=== PATIENT | female | born 1990 | race Asian ===

== ENCOUNTER → 2021-12-17 18:20 | Outpatient (CLI) | payer OTHER, SELFPAY ==
--- NOTE | 2021-12-17 18:22 | DI.US.S_ITS ---
PROCEDURE: US OB <= 14 WEEKS FETUS INDICATIONS: Dating and viability OUTSIDE/PRIOR DATING DATA: Last menstrual period (LMP): September 14, 2021. LMP-based estimated date of delivery (PAOLA): June 21, 2022. First dating scan (date and location): December 17, 2021. Estimated date of delivery (PAOLA) from first dating scan: June 28, 2022. TECHNIQUE: Real-time scanning was performed of the fetus and maternal pelvic organs, with image documentation. COMPARISON: None. FINDINGS: Embryo: There is a single live intrauterine gestation with a crown-rump length of 5.88 cm for a gestational age of 12 weeks, 3 days. There are 2 small subchorionic foci of hemorrhage, 1 of which measures 1.1 x 1.6 x 2.4 cm and 1 which measures 3.4 x 0.9 x 3.1 cm. Heart rate: 163 Maternal organs: Ovaries have a normal appearance. There is a left corpus luteal cyst.. IMPRESSION: 1. Single live intrauterine gestation with a gestational age of 12 weeks, 3 days by crown-rump length. 2. 2 foci of subchorionic hemorrhage as above. We strive to produce accurate, complete, and clear reports of imaging services. To assist us in improving patient care, this report was composed using standard report templates and voice recognition software. Therefore, it may contain abnormal punctuation, insertions and/or omissions. Occasional wrong-word or sound-alike substitutions may occur. Though we review the report and make efforts to correct it, we do recommend that the report be read carefully in proper context to recognize any text inaccuracies. Dictated by: Tonie Romero M.D. on 12/18/2021 at 8:53 Approved by: Tonie Romero M.D. on 12/18/2021 at 9:07
== END ==
PROVIDERS: Referring Provider Obstetrics & Gynecology; Visit Provider Obstetrics & Gynecology
DX: O20.9 Hemorrhage in early pregnancy, unspecified (principal); O34.81 Maternal care for other abnormalities of pelvic organs, first trimester; N83.12 Corpus luteum cyst of left ovary; Z3A.12 12 weeks gestation of pregnancy
CPT/HCPCS: 76801

== ENCOUNTER → 2021-12-27 11:23 | Outpatient (CLI) | payer OTHER, SELFPAY ==
[2021-12-27 15:39] LABS: Appearance Urine UA SL CLOUDY; Bilirubin Urine UA NEGATIVE (NEGATIVE); Color Urine UA YELLOW; Glucose Urine UA NEGATIVE (Negative); Ketones Urine UA NEGATIVE (NEGATIVE); Leukocyte Esterase Urine UA TRACE (NEGATIVE); Nitrite Urine UA NEGATIVE (Negative); Occult Blood Urine UA TRACE-INTACT (Negative); Protein Urine UA NEGATIVE (Negative); Urobilinogen Urine UA 0.2 E.U./dL (0.2)
[2021-12-27 15:40] LABS: pH Urine UA 6.5 (4.5-8.0)
[2021-12-27 15:58] LABS: Amorphous Sediment Urine 1+; Bacteria Urine Few (2-10); Mucus Urine 1+ (Negative); RBC Urine 0-1/HPF (0-5/HPF); Squamous Epithelial Cell Urine 1-5 /HPF (0-5/HPF); Transitional Epi Cells Urine 5-10/HPF (0-5/HPF); WBC Urine 0-1/HPF (0-5/HPF)
== END ==
PROVIDERS: Visit Provider Obstetrics & Gynecology
DX: Z34.00 Encounter for supervision of normal first pregnancy, unspecified trimester (principal)
CPT/HCPCS: 81003; 81015; 87086

== ENCOUNTER → 2021-12-27 12:08 | Outpatient (CLI) | payer OTHER, SELFPAY ==
[2021-12-27 13:48] LABS: Add Manual Diff / Slide Review NO; Basophils Absolute Auto 0 /uL (0-100); Basophils Percent Auto 0.3 % (0-2); Eosinophils Absolute Auto 300 /uL (0-450); Eosinophils Percent Auto 2.4 % (2-4); Hematocrit 40.2 % (36-46); Hemoglobin 13.4 g/dL (12.0-16.0); Lymphocytes Absolute Auto 1500 /uL (1100-4500); Lymphocytes Percent Auto 14.1 % (25-40); Mean Corpuscular HGB Conc 33.4 % (30-36); Mean Corpuscular Hemoglobin 29.8 PG (26-34); Mean Corpuscular Volume 89.2 fL (80-100); Monocytes Absolute Auto 800 /uL (0-900); Monocytes Percent Auto 7.3 % (3-14); Neutrophils Absolute Auto 7900 /uL (1500-7000); Neutrophils Percent Auto 75.9 % (50-75); Platelet Count 236 X10^3/uL (150-400); Red Blood Cell Count 4.51 X10^6/uL (4.0-5.2); Red Cell Distribution Width 14.1 % (11.6-14.8); White Blood Cell Count 10.5 X10^3/uL (4.5-11.0)
[2021-12-28 07:37] LABS: RPR Screen Non Reactive (Non Reactive); Varicella IgG Antibody 453 index (Immune >165)
[2021-12-28 15:49] LABS: Hepatitis B Surface Antigen NEGATIVE s/c (NEGATIVE)
[2021-12-28 16:19] LABS: HIV 1 & 2 Ab/Ag 4th Gen Combo NEGATIVE (NEGATIVE); Hep C Virus Ab w/Reflex Quant NEGATIVE s/c (NEGATIVE)
== END ==
PROVIDERS: Referring Provider Obstetrics & Gynecology; Visit Provider Obstetrics & Gynecology
DX: Z3A.14 14 weeks gestation of pregnancy; Z34.02 Encounter for supervision of normal first pregnancy, second trimester
CPT/HCPCS: 36415; 80055; 81003; 81015; 86787; 86803; 86850; 86900; 86901; 87086; 87389

== ENCOUNTER → 2022-01-21 13:46 | Outpatient (CLI) | payer OTHER, SELFPAY ==
[2022-01-24 20:38] LABS: AFP Value 25.6 ng/mL (.); Gest Age on Col Date 18.4 weeks (.); Insulin Dep Diabetes No (.); OSBR Risk 1IN 10000 (.); Results Report (.); Test Results *Screen Negative* (.)
== END ==
PROVIDERS: Referring Provider Physician Assistant Medical; Visit Provider Physician Assistant Medical
DX: Z34.02 Encounter for supervision of normal first pregnancy, second trimester (principal); Z3A.18 18 weeks gestation of pregnancy
CPT/HCPCS: 36415; 82105

== ENCOUNTER → 2022-02-11 09:36 | Outpatient (CLI) | payer OTHER, SELFPAY ==
--- NOTE | 2022-02-11 09:37 | DI.US.S_ITS ---
PROCEDURE: US OB >= 14 WEEKS FETUS INDICATIONS: ANATOMY OUTSIDE/PRIOR DATING DATA: Last menstrual period (LMP): 09/14/21. LMP-based estimated date of delivery (PAOLA): 06/21/22. First dating scan (date and location): 12/17/21. Estimated date of delivery (PAOLA) from first dating scan: 06/28/22. The calculations are made using the first-trimester ultrasound PAOLA of 06/28/22. TECHNIQUE: Real-time scanning was performed of the fetus, with image documentation and biometric measurements. Endovaginal scanning: Not performed COMPARISON: None. FINDINGS: General: A single living intrauterine gestation is present. Presentation: Transverse, head to maternal left. Placenta: Placental position is anterior , without previa. Amniotic fluid index: 13.2 cm, normal range is 5-24 cm. Single deepest vertical pocket is 4.1 cm. heart rate: 119 beats per minute. Maternal cervical canal: Closed and 3.2 cm long. Normal lower limit is 2.5 cm. biometrics: Biparietal diameter: 4.9 cm, 20 weeks, six days Head circumference: 18.4 cm, 20 weeks, five days Abdominal circumference: 15.7 cm, 20 weeks, six days Femur length: 3.2 cm, 20 weeks, 0 days Clinically estimated gestational age: 20 weeks, three days Composite gestational age from present scan: 20 weeks, four days Estimated weight and percentile: 359 g, 50th percentile Anatomic survey: Neuro: Ventricles are non-dilated at less than 10 mm. Cisterna magna is normal at 3-11 mm. Cerebellum is normal in size and morphology. Nuchal skin fold: Normal at less than 6 mm between 14-21 weeks gestational age. Face: facial features were not well seen due to lie. Spine: No evidence for spina bifida. Heart: 4-chambered heart is present, with normal ventricular outflow tracts. Diaphragm: Diaphragm is intact. Stomach: Left-sided stomach is present. Kidneys: No hydronephrosis. Normal is less than 5 mm in 2nd trimester, less than 7 mm in 3rd trimester. Cord: 3-vessel cord has orthotopic insertion. Bladder: Normal in size. Extremities: All 4 extremities identified. IMPRESSION: 1. Single living intrauterine with appropriate and symmetric growth compared to the clinical gestational age. 2. Estimated weight at the 50th percentile. 3. facial features were not well seen due to lie. anatomy is otherwise normal. Follow-up is recommended. We strive to produce accurate, complete, and clear reports of imaging services. To assist us in improving patient care, this report was composed using standard report templates and voice recognition software. Therefore, it may contain abnormal punctuation, insertions and/or omissions. Occasional wrong-word or sound-alike substitutions may occur. Though we review the report and make efforts to correct it, we do recommend that the report be read carefully in proper context to recognize any text inaccuracies. Dictated by: Mary Gao M.D. on 02/11/2022 at 12:13 Approved by: Mary Gao M.D. on 02/11/2022 at 12:46
== END ==
PROVIDERS: Referring Provider Obstetrics & Gynecology; Visit Provider Obstetrics & Gynecology
DX: Z34.02 Encounter for supervision of normal first pregnancy, second trimester (principal); Z3A.20 20 weeks gestation of pregnancy
CPT/HCPCS: 76811

== ENCOUNTER → 2022-03-04 15:59 | Outpatient (CLI) | payer OTHER, SELFPAY ==
--- NOTE | 2022-03-04 16:00 | DI.US.S_ITS ---
PROCEDURE: US OB FOLLOW UP INDICATIONS: FU on babys face OUTSIDE/PRIOR DATING DATA: Last menstrual period (LMP): 09/14/2021 LMP-based estimated date of delivery (PAOLA): 06/21/2022. First dating scan (date and location): 12/17/2021. Estimated date of delivery (PAOLA) from first dating scan: A 06/28/2022. TECHNIQUE: Real-time scanning was performed of the fetus, with image documentation and biometric measurements. COMPARISON: [facility], OB >= 14 WEEKS FETUS, 02/11/2022, 9:41. FINDINGS: General: A single living intrauterine gestation is present. Presentation: Vertex. Placenta: Placental position is anterior , without previa. Amniotic fluid index: 20.1 cm, normal range is 5-24 cm. Single deepest vertical pocket is 6.5 cm. heart rate: 130 beats per minute. Maternal cervical canal: 5.2 cm long. Normal lower limit is 2.5 cm. Normal appearance of the face, nose lips and facial profile. IMPRESSION: 1. Single living IUP redemonstrated and today's exam demonstrating normal appearance of the face. We strive to produce accurate, complete, and clear reports of imaging services. To assist us in improving patient care, this report was composed using standard report templates and voice recognition software. Therefore, it may contain abnormal punctuation, insertions and/or omissions. Occasional wrong-word or sound-alike substitutions may occur. Though we review the report and make efforts to correct it, we do recommend that the report be read carefully in proper context to recognize any text inaccuracies. Dictated by: Delon Antonio Feng Interpreted: Landen Solis MD on 03/04/2022 at 16:38 Transcribed by: JORGE LUIS on 03/04/2022 at 16:40 Approved by: Landen Solis M.D. on 03/04/2022 at 16:52
== END ==
PROVIDERS: Referring Provider Obstetrics & Gynecology; Visit Provider Obstetrics & Gynecology
DX: Z3A.21 21 weeks gestation of pregnancy; Z36.2 Encounter for other antenatal screening follow-up
CPT/HCPCS: 76816

== ENCOUNTER → 2022-03-18 12:05 | Outpatient (CLI) | payer OTHER, SELFPAY ==
[2022-03-18 13:58] LABS: Hematocrit 36.7 % (36-46); Hemoglobin 12.6 g/dL (12.0-16.0)
[2022-03-18 16:50] LABS: GTT (PREG) 1 Hour PP 50gm Dose 103 mg/dL (76-139)
== END ==
PROVIDERS: Referring Provider Obstetrics & Gynecology; Visit Provider Obstetrics & Gynecology
DX: Z34.02 Encounter for supervision of normal first pregnancy, second trimester (principal); Z3A.26 26 weeks gestation of pregnancy
CPT/HCPCS: 36415; 82950; 85014; 85018

== ENCOUNTER → 2022-06-03 09:57 | Outpatient (CLI) | payer OTHER, SELFPAY ==
[2022-06-04 07:45] LABS: Strep Grp B PCR NEG for Grp B Strep
== END ==
PROVIDERS: Visit Provider Physician Assistant Medical
DX: Z34.03 Encounter for supervision of normal first pregnancy, third trimester (principal); Z3A.37 37 weeks gestation of pregnancy
CPT/HCPCS: 87653

== ENCOUNTER → 2022-06-17 10:35 | Outpatient (CLI) | payer OTHER, SELFPAY ==
[2022-06-17 15:04] LABS: Protein (Total) Urine Random 13 mg/dL (0-12)
[2022-06-17 15:53] LABS: Creatinine Urine Random 475.9 mg/dL; Protein Creatinine Ratio Urine 0.02 GRAM/24H
== END ==
PROVIDERS: Visit Provider Obstetrics & Gynecology
DX: R80.9 Proteinuria, unspecified (principal); Z34.03 Encounter for supervision of normal first pregnancy, third trimester
CPT/HCPCS: 82570; 84156

== ENCOUNTER → 2022-06-25 14:35 | Outpatient (CLI) | payer OTHER, SELFPAY | PROVIDERS: Visit Provider Obstetrics & Gynecology | DX: Z34.83 Encounter for supervision of other normal pregnancy, third trimester (principal) | CPT/HCPCS: 87086 ==

== ENCOUNTER 2022-06-25 14:51 | Outpatient (CLI) | payer OTHER, SELFPAY ==
--- NOTE | 2022-06-25 16:03 | PM.OBTRLD ---
Visit Information Visit Information Date of evaluation: 06/25/22 Primary OB Provider: Bubba Umana Reason for Evaluation: Yes non-stress test Comments/Additional reasons for admission: 31 yo PAOLA 06/21/2022 presenting for NST due to 40+4 weeks EGA PFSH Medical History (Updated 06/25/22 @ 14:53 by Bubba Umana MD) Anxiety Depression Tuberculosis Surgical History (Updated 12/17/21 @ 15:45 by Pam Choi, RN) [place] teeth extracted Family History (Updated 12/17/21 @ 15:47 by Pam Choi, RN) Family/Other Hypertension Family/Other Brain cancer Grandmother Ovarian cancer Diabetes mellitus Social History marital status: number of children: 0 household members: spouse lives independently: Yes housing: apartment pets and animals: Yes (1 cat, managing litter box.) education level: college occupational status: employed current occupational exposures/hazards: No special sadiq needs: No travel history: recent (domestic only) seatbelt use: always helmet use: Yes water heater temp set < 120 deg: No working smoke detector in home: Yes fire extinguisher in home: Yes carbon monox detector in home: Yes firearms in home: No do you feel safe at home: Yes Smoking Status: Former smoker (Quit age 23) second hand exposure: No alcohol intake: former (occasional 1-2 drinks when not ) substance use type: does not use during the past year weight has: remained stable well-balanced diet: daily or most days daily servings fruits/ve or more times/day caffeine: Yes (Aware of 200mg limit) Type(s) of exercise: walking, regular exercise and weight lifting Evaluation Evaluation Baseline heart rate: 135 Variability: Moderate (11-25) monitor accelerations: Present Monitor Decelerations: Absent Uterine Contraction Intensity: Mild Category of Tracing: Reactive Status: Category l Comments: SANDRO = 8.02 cm Diagnosis, Plan/Disposition Plan/Disposition Plan: Admit for cervical ripening on the evening of 06/26/2022 and induction 06/27/2022. Labor precautions reviewed. OB Disposition: home
== END 2022-06-25 15:50 | disposition home or self-care (01) ==
LOC: LABOR 15:55 → OB 06-27 15:54
PROVIDERS: Referring Provider Obstetrics & Gynecology; Visit Provider Obstetrics & Gynecology
DX: O48.0 Post-term pregnancy (principal); Z3A.40 40 weeks gestation of pregnancy; Z34.83 Encounter for supervision of other normal pregnancy, third trimester
CPT/HCPCS: 59025; 76815; 87086; G0378; G0379

== ENCOUNTER 2022-06-26 18:04 | Inpatient (IN) | payer OTHER, SELFPAY ==
[2022-06-26 18:59] LABS: Add Manual Diff / Slide Review NO; Basophils Absolute Auto 0 /uL (0-100); Basophils Percent Auto 0.3 % (0-2); Eosinophils Absolute Auto 200 /uL (0-450); Hematocrit 37.6 % (36-46); Hemoglobin 12.8 g/dL (12.0-16.0); Lymphocytes Absolute Auto 1300 /uL (1100-4500); Lymphocytes Percent Auto 16.1 % (25-40); Mean Corpuscular HGB Conc 34.1 % (30-36); Mean Corpuscular Hemoglobin 30.7 PG (26-34); Mean Corpuscular Volume 89.9 fL (80-100); Monocytes Absolute Auto 700 /uL (0-900); Monocytes Percent Auto 8.8 % (3-14); Neutrophils Absolute Auto 5800 /uL (1500-7000); Neutrophils Percent Auto 71.8 % (50-75); Platelet Count 199 X10^3/uL (150-400); Red Blood Cell Count 4.18 X10^6/uL (4.0-5.2); Red Cell Distribution Width 14.3 % (11.6-14.8); White Blood Cell Count 8.1 X10^3/uL (4.5-11.0)
--- NOTE | 2022-06-26 19:19 | P.HPOB_ITS ---
OB HPI Date/Time Date of admission: 06/26/22 Date Patient Seen: 06/26/22 Time Patient Seen: 19:20 History of Present Condition Chief complaint: Observation : 1 Para: 0 Estimated Date of Delivery: 06/21/22 Estimated Gestational Age (weeks): 40+5 Narrative: Ondina Dalton is a 31 year old primigravida at 40+ 5 weeks EGA admitted for elective induction/post-dates. course has been unremarkable, her da ting is solid, and her milestones appropriate. GBS is negative. Indications Indication for induction OB: post dates History of Present care: good care Dating criteria: LMP confirmed by 1st trimester US Ultrasounds: normal 1st trimester US and normal mid trimester US Obstetrical complications: none Medical complications: none Preadmission Labs Blood type: O (+) positive -: Antibody screen: negative, GBS status: negative, HBsAG: negative, HIV: negative and RPR/VDLR: negative -: Chlamydia screen: not detected and Gonorrhea screen: not detected -: Rubella: immune and Varicella: immune HCT: 36.7 HCAB: negative PAP: Normal Quad screen: Normal (AFP negative) Cell-free DNA: Low risk male 1 hr GTT: 103 Prior (ies) History: G1 Evaluation Evaluation Baseline heart rate: 130 Variability: Moderate (11-25) monitor accelerations: Present Monitor Decelerations: Absent Contraction Frequency (minutes): 5 Uterine Contraction Intensity: Mild Category of Tracing: Reactive Status: Category l Dilation (cm): 1 Effacement (%): 90 Dilation: 1-2 cm Effacement: >/=80% station: -1 Position of cervix: mid Consistency: medium Max score: 8 PFSH Medical History (Updated 06/25/22 @ 14:53 by Bubba Umana MD) Anxiety Depression Tuberculosis Surgical History (Updated 12/17/21 @ 15:45 by Pam Choi, KATJA) [place] teeth extracted Family History (Updated 12/17/21 @ 15:47 by Pam Choi, KATJA) Family/Other Hypertension Family/Other Brain cancer Grandmother Ovarian cancer Diabetes mellitus Social History marital status: number of children: 0 household members: spouse lives independently: Yes housing: apartment pets and animals: Yes (1 cat, managing litter box.) education level: college occupational status: employed current occupational exposures/hazards: No special sadiq needs: No travel history: recent (domestic only) seatbelt use: always helmet use: Yes water heater temp set < 120 deg: No working smoke detector in home: Yes fire extinguisher in home: Yes carbon monox detector in home: Yes firearms in home: No do you feel safe at home: Yes Smoking Status: Former smoker (Quit age 23) second hand exposure: No alcohol intake: former (occasional 1-2 drinks when not ) substance use type: does not use during the past year weight has: remained stable well-balanced diet: daily or most days daily servings fruits/ve or more times/day caffeine: Yes (Aware of 200mg limit) Type(s) of exercise: walking, regular exercise and weight lifting Meds Home Medications and Allergies Home Medications Medication Instructions Recorded Confirmed Type ascorbic acid (vitamin C) 1,000 mg 1 g PO DAILY 12/17/21 06/25/22 History tablet prenat.vits,román,iqj-jigq-xsznh 1 tab PO DAILY 12/17/21 06/25/22 History ondansetron 4 mg disintegrating 4 mg PO Q8H #20 tabs 12/27/21 06/25/22 Rx tablet double electric breast pump 1 ea topical .prn #1 ea 06/04/22 06/25/22 Rx Allergies Allergy/AdvReac Type Severity Reaction Status Date / Time shellfish derived Allergy Intermediate ITCHING Verified 06/25/22 14:16 OB Exam Vital signs Blood Pressure: 139/86 Pulse Rate: 78 Temperature: 98.1 F HENMT Head: normal to inspection, normocephalic and atraumatic Eyes General: appearance normal, both eyes and all related structures Resp Effort & Inspection: normal respiratory effort and able to speak in complete sentences Auscultation: clear to auscultation bilaterally Cardio Rate: regular rate Rhythm: regular rhythm Heart Sounds: S1 normal, S2 normal and no murmurs Extremities Lower extremity: Yes normal to inspection GI Inspection: normal to inspection Palpation: Yes soft and Yes no hepatosplenomegaly Uterus Location (Fundal Height): 38 Presentation: vertex Estimated Weight (lbs): 8 Objective Labs 06/26/22 18:13 Assessment and Plan Assessment and Plan Assessment and Plan narrative: ASSESSMENT 1. Intrauterine , 40+5 wks EGA 2. GBS negative status PLAN 1. Admit for ripening/induction 2. See admission orders Time Spent with Patient Total time spent with greater than 50% in coordination of care (as documented) at patient's floor/unit and/or counseling patient:: 15-24 minutes
[2022-06-26 19:31] VITALS: BP 139/86
[2022-06-26] MEDS: miSOPROStoL 100 MCG TABLET 50 MCG PO (19:41)
[2022-06-26 19:45] VITALS: BP 139/86; PULSE 78; TEMP 36.7
[2022-06-26] MEDS: ZOLPIDEM 5 MG TABLET PO (23:31)
[2022-06-27] MEDS: miSOPROStoL 100 MCG TABLET 50 MCG PO (01:48)
--- NOTE | 2022-06-27 07:39 | P.HPOB_ITS ---
OB HPI Date/Time Date of admission: 06/26/22 Date Patient Seen: 06/27/22 Time Patient Seen: 07:40 History of Present Condition Chief complaint: Observation : 1 Para: 0 Estimated Date of Delivery: 06/21/22 Estimated Gestational Age (weeks): 40+6 Narrative: Ondina Dalton is a 31 year old PAOLA 06/21/2022 admitted for ripening and induction now at 40+6 weeks EGA. course has been uneventful , dating is firm, and milestoness have been appropriate. GBS is negative. Indications Indication for induction OB: other (Maternal discomfort, EGA) History of Present care: good care Dating criteria: LMP confirmed by 1st trimester US Ultrasounds: normal 1st trimester US and normal mid trimester US Obstetrical complications: none Medical complications: none Preadmission Labs Blood type: O (+) positive -: Antibody screen: negative, GBS status: negative, HBsAG: negative, HIV: negative and RPR/VDLR: negative -: Chlamydia screen: not detected and Gonorrhea screen: not detected -: Rubella: immune and Varicella: immune HCT: 37.6 HCAB: negative PAP: Normal Quad screen: Normal (AFP testing negative) Cell-free DNA: Low risk male 1 hr GTT: 103 Prior (ies) History: G1 Evaluation Evaluation Baseline heart rate: 130 Variability: Moderate (11-25) monitor accelerations: Present Monitor Decelerations: Absent Contraction Frequency (minutes): 4 Uterine Contraction Intensity: Mild Category of Tracing: Reactive Status: Category l Dilation (cm): 3 Effacement (%): 90 Dilation: 3-4 cm Effacement: >/=80% station: -1 Position of cervix: mid Consistency: soft Max score: 10 [facility] Medical History (Updated 06/25/22 @ 14:53 by Bubba Umana MD) Anxiety Depression Tuberculosis Surgical History (Updated 12/17/21 @ 15:45 by Pam Choi, KATJA) [place] teeth extracted Family History (Updated 12/17/21 @ 15:47 by Pam Choi, RN) Family/Other Hypertension Family/Other Brain cancer Grandmother Ovarian cancer Diabetes mellitus Social History marital status: number of children: 0 household members: spouse lives independently: Yes housing: apartment pets and animals: Yes (1 cat, managing litter box.) education level: college occupational status: employed current occupational exposures/hazards: No special sadiq needs: No travel history: recent (domestic only) seatbelt use: always helmet use: Yes water heater temp set < 120 deg: No working smoke detector in home: Yes fire extinguisher in home: Yes carbon monox detector in home: Yes firearms in home: No do you feel safe at home: Yes Smoking Status: Never smoker second hand exposure: No alcohol intake: former (occasional 1-2 drinks when not ) substance use type: does not use during the past year weight has: remained stable well-balanced diet: daily or most days daily servings fruits/ve or more times/day caffeine: Yes (Aware of 200mg limit) Type(s) of exercise: walking, regular exercise and weight lifting Meds Home Medications and Allergies Home Medications Medication Instructions Recorded Confirmed Type ascorbic acid (vitamin C) 1,000 mg 1 g PO DAILY 12/17/21 06/25/22 History tablet prenat.vits,román,kbz-yztx-baiyu 1 tab PO DAILY 12/17/21 06/25/22 History ondansetron 4 mg disintegrating 4 mg PO Q8H #20 tabs 12/27/21 06/25/22 Rx tablet double electric breast pump 1 ea topical .prn #1 ea 06/04/22 06/25/22 Rx Allergies Allergy/AdvReac Type Severity Reaction Status Date / Time shellfish derived Allergy Intermediate ITCHING Verified 06/25/22 14:16 OB Exam Vital signs Blood Pressure: 138/93 Pulse Rate: 72 Temperature: 97.5 F HENTN Head: normal to inspection, normocephalic and atraumatic Eyes General: appearance normal, both eyes and all related structures Resp Effort & Inspection: normal respiratory effort and able to speak in complete sentences Auscultation: clear to auscultation bilaterally Cardio Rate: regular rate Rhythm: regular rhythm Heart Sounds: S1 normal, S2 normal and no murmurs Extremities Lower extremity: Yes normal to inspection GI Inspection: normal to inspection Palpation: Yes soft and Yes no hepatosplenomegaly Uterus Location (Fundal Height): 38 Presentation: vertex Estimated Weight (lbs): 8 Amniotic Fluid: clear Objective Labs 06/26/22 18:13 Labs: Laboratory Results - last 24 hr 06/26/22 06/26/22 18:13 18:13 WBC 8.1 RBC 4.18 Hgb 12.8 Hct 37.6 MCV 89.9 MCH 30.7 MCHC 34.1 RDW 14.3 Plt Count 199 Neut % (Auto) 71.8 Lymph % (Auto) 16.1 L [place] % (Auto) 8.8 Eos % (Auto) 3.0 Baso % (Auto) 0.3 Neut # (Auto) 5800 Lymph # (Auto) 1300 [place] # (Auto) 700 Eos # (Auto) 200 Baso # (Auto) 0 Blood Type O Positive Antibody Screen Negative Assessment and Plan Assessment and Plan Assessment and Plan narrative: ASSESSMENT 1. Intrauterine , 40+6 weeks EGA 2. GBS negative status PLAN 1. Admit for ripening and induction 2. See admission orders Time Spent with Patient Total time spent with greater than 50% in coordination of care (as documented) at patient's floor/unit and/or counseling patient:: 15-24 minutes
[2022-06-27 07:54] VITALS: BP 138/93; PULSE 72; TEMP 36.4
[2022-06-27] MEDS: OXYTOCIN PREMIX 30 UNIT/500 ML PLAST..BAG IV (09:17)
[2022-06-27] MEDS: LACTATED RINGERS 1,000 ML 100 ML IV (09:17)
[2022-06-27] MEDS: fentaNYL 100 MCG/2 ML INJ 50 MCG IV (10:16)
--- NOTE | 2022-06-27 14:06 | PM.OBPRVD ---
Events: Other (Post-dates) Labor & Delivery Delivery date: 06/27/22 Intrapartal Events: None Cervical ripening method: per misoprostal protocol Induction method: per pitocin protocol Delivery augmentation: pitocin Delivery monitor: external FHT and external uterine Route of delivery: Episiotomy description: None L&D Laceration Description: Perineal - 2nd Degree and Labial (Bilateral, 2nd degree) Delivery repair: chromic Estimated blood loss (mL): 250 Anesthesia Type: Local and Other (Nitrous oxide) Complications: None Narrative: Following a 22 minute 2nd stage of labor, the patient delivered spontaneously over an intact perineum a viable male with Apgars of 9 and 9 and a weight of 3357 g (7 lb 6.4 oz). A loose nuchal cord was noted along with compound presentation involving the left hand. No shoulder dystocia was encountered and the cord was reduced following delivery of the body. The infant was vigorous and skin to skin contact was initiated immediately. Delayed cord clamping was performed but once the umbilical cord was doubly clamped and cut, cord blood sample was obtained for routine studies. The placenta was easily delivered with gentle cord traction and suprapubic countertraction. Inspection of the placenta revealed it to be intact with a central insertion of a three-vessel cord. IV Pitocin was initiated immediately following delivery of the placenta and bleeding was quickly slowed. Inspection of the perineum showed that she had superficial second-degree lacerations of both labia and a superficial second-degree midline perineal laceration. The labial lacerations were closed with 3-0 chromic in a running interlocking stitch under nitrous and local. The midline perineal laceration was then closed with 2-0 chromic in the usual manner. At the completion of the delivery process both mother and baby were doing extremely well. Baby 1: Infant gender: Male Presentation: vertex Position: Left Occiput Anterior Placenta delivery description: Spontaneous Cord Vessel Description: 3 Vessels and Nuchal Cord score (1 min): 9 score (5 min): 9 weight: 7 lb 6.415 oz Plan for aftercare: Routine care
[2022-06-27] MEDS: IBUPROFEN 600 MG TABLET PO ×2 (15:15→22:01)
[2022-06-27] MEDS: DERMOPLAST SPRAY 20% 60 ML 1 SPRAY TOP (15:16)
--- NOTE | 2022-06-27 18:06 | DI.RAD.S_ITS ---
PROCEDURE: XR CHEST 2V INDICATIONS: SOB TECHNIQUE: 2 views of the chest were acquired. COMPARISON: None. FINDINGS: Surgical changes and devices: None. Lungs and pleura: Lungs are clear. No pleural effusions or pneumothorax. Mediastinum: Mediastinal contours are normal. Heart size is normal. Bones and chest wall: No suspicious bony abnormalities. Soft tissues appear unremarkable. IMPRESSION: No acute process. Dictated by: Marine Yap M.D. on 06/27/2022 at 18:35 Approved by: Marine Yap M.D. on 06/27/2022 at 18:35
--- NOTE | 2022-06-27 18:26 | PM.OBPN.1 ---
Subjective - OB Subjective Patient comments: other (SOB) Hay baby status: doing well Date Patient Seen: 06/27/22 Time Patient Seen: 17:55 Interval history: CTSP stat due to onset of SOB and vague upper chest pressure since moving from Rm. 5 to PP Rm. 4. Has a sensation of being SOB, but dull precordial and upper sternal CP. No cardiac history. O2 sats on RA dropped into low 90's and supplemental O2 by [employer] promptly returns sats to 98%+. + hx. of asthma as a child. + hx of anxiety. Exam Vital Signs (past 8 hours): BP: 135/88 P: 90 R: 20 T: 99.4F Const General: cooperative and anxious Nutritional Appearance: average body habitus Orientation: alert and oriented x3 HENMT Head: normal to inspection, atraumatic and abrasion Ears: hearing grossly normal bilaterally Face and sinus: face symmetric Eyes General: appearance normal, both eyes and all related structures Conjunctivae: conjunctivae normal Sclera: sclerae normal EOM: EOM intact bilaterally Neck Neck: normal visual inspection Resp Effort & Inspection: normal respiratory effort and able to speak in complete sentences Auscultation: clear to auscultation bilaterally and wheezes (Mild, diffuse late expiratory wheezes) expiratory wheezes Cardio Palpation: normal PMI Rate: regular rate Rhythm: regular rhythm Heart Sounds: S1 normal, S2 normal and no murmurs GI Inspection: normal to inspection Palpation: soft and no hepatosplenomegaly External Female Exam: other (No significant bleeding noted) Neuro General: patient alert, patient awake, patient oriented x3, no meningeal signs, no focal motor deficits and CN's II-XI intact bilaterally Extrem General: no calf tenderness Psych Appearance: grossly normal Mental Status: mental status grossly normal Speech and Movement: speech and movement normal Mood: congruent mood Affect: normal affect Attitude: cooperative Thought Process: normal Thought Content: normal Judgment: judgment good Objective Imaging Chest x-ray: Radiologist's impression: PROCEDURE:? XR CHEST 2V ? INDICATIONS:? SOB ? TECHNIQUE:? 2 views of the chest were acquired.? ? COMPARISON:? None. ? FINDINGS:? ? Surgical changes and devices:? None.? ? Lungs and pleura:? Lungs are clear.? No pleural effusions or pneumothorax.? ? Mediastinum:? Mediastinal contours are normal.? Heart size is normal.? ? Bones and chest wall:? No suspicious bony abnormalities.? Soft tissues appear unremarkable.? ? IMPRESSION:? No acute process. CT scan - chest: Radiologist's impression: PROCEDURE:? CT ANGIO CHEST PE PROTOCOL ? INDICATIONS:? R.O PE pp shortness of breath ? TECHNIQUE:? After the administration of intravenous contrast, 2 mm thick sections acquired from the pulmonary apices to the posterior costophrenic angles.? 3-dimensional maximum intensity projection (MIP) coronal and sagittal reformats were then acquired through the thorax.? For radiation dose reduction, the following was used:? automated exposure control, adjustment of mA and/or kV according to patient size.? ? COMPARISON:? None. ? FINDINGS:? Image quality:? There is mild motion artifact.? ? Pulmonary arteries:? Pulmonary arteries are normal in size, and demonstrate no intraluminal filling defects to suggest central pulmonary embolism.? ? Lower Neck: No lymphadenopathy by size criteria. Thyroid:? Visualized thyroid demonstrates no discrete nodules. Axillae: No lymphadenopathy by size criteria. Chest Wall:? Unremarkable.? Bones: Visualized osseous structures demonstrate no suspicious lesions. ? Lungs and Airways:? No acute consolidation.? There is mild dependent atelectasis.? There is a left lower lobe peripheral subpleural nodule measuring up to 0.5 cm on series 5 image 174. The trachea and central airways are patent. Pleura: No pneumothorax or pleural effusions.? ? Heart: Heart size is normal.? No pericardial effusion. Thoracic Vessels: The thoracic aorta is normal in size.? Mediastinum and Carmela: No lymphadenopathy by size criteria.? There is soft tissue within the anterior mediastinum likely representing residual thymus. Esophagus: No wall thickening. No hiatal hernia. ? Abdomen:? Visualized upper abdominal solid organs appear normal in the early arterial phase of enhancement.? ? IMPRESSION:? ? 1. No evidence of pulmonary embolism. ? 2. No acute airspace consolidation. ? 3. Nonspecific left lower lobe 0.5 cm pulmonary nodule.? Labs 06/28/22 06:12 Labs: Laboratory Results - last 24 hr 06/26/22 06/26/22 18:13 18:13 WBC 8.1 RBC 4.18 Hgb 12.8 Hct 37.6 MCV 89.9 MCH 30.7 MCHC 34.1 RDW 14.3 Plt Count 199 Neut % (Auto) 71.8 Lymph % (Auto) 16.1 L [place] % (Auto) 8.8 Eos % (Auto) 3.0 Baso % (Auto) 0.3 Neut # (Auto) 5800 Lymph # (Auto) 1300 [place] # (Auto) 700 Eos # (Auto) 200 Baso # (Auto) 0 Blood Type O Positive Antibody Screen Negative D-Dimer: 12, 474 Lactate: 1.1 Total CK: 324 CK-MB: 3.06 Troponin: <.012 PM-Xyu-A-Brittanie Pep: 115 Assessment & Plan Assessment and Plan (1) Shortness of breath at rest: Problem details: The etiology of the patient's shortness of breath following delivery is unclear but there was no evidence of pulmonary embolus, or an acute cardiopulmonary event. Over time and given an extended period of observation, the patient's shortness of breath has gradually resolved and given the late expiratory wheezing that the patient had along with her history of allergies, it is conceivable that she had some sort of transient allergic response to an unidentified environmental allergen. Anxiety could also be playing a role but the patient seems to have recovered spontaneously without further intervention. Status: Acute Plan day: 0 Comments: Continue standard routine care with close observation for recurrence of the patient's symptoms. Time Spent With Patient Time: Total time spent is greater than 50% in coordination of care (as documented) at patient's floor/unit and/or counseling patient: Time with patient: Greater than 35 minutes
[2022-06-27 18:51] LABS: Add Manual Diff / Slide Review NO; Basophils Absolute Auto 100 /uL (0-100); Basophils Percent Auto 0.5 % (0-2); Eosinophils Absolute Auto 0 /uL (0-450); Eosinophils Percent Auto 0.1 % (2-4); Hemoglobin 11.7 g/dL (12.0-16.0); Lymphocytes Absolute Auto 800 /uL (1100-4500); Lymphocytes Percent Auto 6.4 % (25-40); Mean Corpuscular HGB Conc 34.3 % (30-36); Mean Corpuscular Hemoglobin 30.6 PG (26-34); Mean Corpuscular Volume 89.2 fL (80-100); Monocytes Absolute Auto 700 /uL (0-900); Neutrophils Absolute Auto 10600 /uL (1500-7000); Platelet Count 182 X10^3/uL (150-400); Red Blood Cell Count 3.81 X10^6/uL (4.0-5.2); Red Cell Distribution Width 14.3 % (11.6-14.8); White Blood Cell Count 12.2 X10^3/uL (4.5-11.0)
[2022-06-27 18:59] LABS: COVID19 -Nasal RAPID Negative (Negative)
[2022-06-27 18:59] LABS: Creatine Kinase 324 U/L (30-135); Lactate (Lactic Acid) 2.6 mmol/L (0.7-2.1)
[2022-06-27 19:01] LABS: D Dimer 12474 ng/ml (<500)
[2022-06-27 19:12] LABS: Troponin I < 0.012 ng/mL (0.01-0.034)
[2022-06-27 19:14] VITALS: O2SAT 98
[2022-06-27 19:14] LABS: CKMB % Relative Index 0.9 % (1.5-5.0); Creatine Kinase MB 3.06 ng/mL (<2.37)
[2022-06-27 19:17] LABS: Procalcitonin 0.05 ng/mL (<0.5)
--- NOTE | 2022-06-27 19:36 | DI.CT.S_ITS ---
PROCEDURE: CT ANGIO CHEST PE PROTOCOL INDICATIONS: R.O PE pp shortness of breath TECHNIQUE: After the administration of intravenous contrast, 2 mm thick sections acquired from the pulmonary apices to the posterior costophrenic angles. 3-dimensional maximum intensity projection (MIP) coronal and sagittal reformats were then acquired through the thorax. For radiation dose reduction, the following was used: automated exposure control, adjustment of mA and/or kV according to patient size. COMPARISON: None. FINDINGS: Image quality: There is mild motion artifact. Pulmonary arteries: Pulmonary arteries are normal in size, and demonstrate no intraluminal filling defects to suggest central pulmonary embolism. Lower Neck: No lymphadenopathy by size criteria. Thyroid: Visualized thyroid demonstrates no discrete nodules. Axillae: No lymphadenopathy by size criteria. Chest Wall: Unremarkable. Bones: Visualized osseous structures demonstrate no suspicious lesions. Lungs and Airways: No acute consolidation. There is mild dependent atelectasis. There is a left lower lobe peripheral subpleural nodule measuring up to 0.5 cm on series 5 image 174. The trachea and central airways are patent. Pleura: No pneumothorax or pleural effusions. Heart: Heart size is normal. No pericardial effusion. Thoracic Vessels: The thoracic aorta is normal in size. Mediastinum and Carmela: No lymphadenopathy by size criteria. There is soft tissue within the anterior mediastinum likely representing residual thymus. Esophagus: No wall thickening. No hiatal hernia. Abdomen: Visualized upper abdominal solid organs appear normal in the early arterial phase of enhancement. IMPRESSION: 1. No evidence of pulmonary embolism. 2. No acute airspace consolidation. 3. Nonspecific left lower lobe 0.5 cm pulmonary nodule. Dictated by: Sha Lyons M.D. on 06/27/2022 at 21:39 Approved by: Sha Lyons M.D. on 06/27/2022 at 21:44
[2022-06-27] MEDS: DEXAMETHASONE 4 MG/ML VIAL IV (20:05)
[2022-06-27] MEDS: diphenhydrAMINE 50 MG/ML VIAL 25 MG IV (20:05)
[2022-06-27 20:40] LABS: Reflexed Lactate in 2 Hours Y
[2022-06-27 21:16] LABS: NT-proBNP (BNP-Adult 18+) 115 pg/mL (<125)
[2022-06-27 21:40] LABS: Lactate 2HR (Lactic Acid Rflx) 1.1 mmol/L (0.7-2.1)
[2022-06-27] MEDS: DOCUSATE 100 MG CAPSULE PO (22:01)
[2022-06-27] MEDS: ACETAMINOPHEN 325 MG TABLET 650 MG PO (22:01)
[2022-06-27] MEDS: ALBUTEROL/IPRATROPIUM 3 ML AMPUL INH (22:20)
[2022-06-28] MEDS: IBUPROFEN 600 MG TABLET PO ×3 (04:19→16:40)
[2022-06-28] MEDS: ACETAMINOPHEN 325 MG TABLET 650 MG PO ×3 (04:19→16:40)
[2022-06-28 06:42] LABS: Add Manual Diff / Slide Review NO; Basophils Absolute Auto 0 /uL (0-100); Basophils Percent Auto 0.3 % (0-2); Eosinophils Absolute Auto 0 /uL (0-450); Eosinophils Percent Auto 0.3 % (2-4); Hematocrit 30.5 % (36-46); Hemoglobin 10.4 g/dL (12.0-16.0); Lymphocytes Absolute Auto 1300 /uL (1100-4500); Lymphocytes Percent Auto 12.1 % (25-40); Mean Corpuscular HGB Conc 34.1 % (30-36); Mean Corpuscular Hemoglobin 30.7 PG (26-34); Monocytes Absolute Auto 800 /uL (0-900); Monocytes Percent Auto 7.7 % (3-14); Neutrophils Absolute Auto 8500 /uL (1500-7000); Neutrophils Percent Auto 79.6 % (50-75); Platelet Count 162 X10^3/uL (150-400); Red Blood Cell Count 3.39 X10^6/uL (4.0-5.2); Red Cell Distribution Width 14.3 % (11.6-14.8); White Blood Cell Count 10.7 X10^3/uL (4.5-11.0)
[2022-06-28] MEDS: LORATADINE 10 MG TABLET PO (10:25)
[2022-06-28 17:04] VITALS: BP 141/87; PULSE 105; RESP 16; TEMP 36.2
--- NOTE | 2022-06-28 17:37 | PM.OBDS.1 ---
Discharge Providers Provider Date of admission: 06/26/22 18:04 Discharge Date: 06/28/22 Primary care physician: Charli GOLDSTEIN Provider Consults: 06/26/22 19:23 Consult to Anesthesiology Urgent Comment: Consulting Provider: Bubba Umana Reason for consultation: Epidural Has provider been notified: No 06/27/22 19:48 Consult to Hospitalist Service Routine Comment: please call Dr. Umana after consult Consulting Provider: Emily Gtz Reason for consultation: SOB 06/28/22 14:03 Consult to [employer] Professional Routine Comment: Discharge provider: Bubba Umana MD Summary Hospital Course Date Patient Seen: 06/28/22 Time Patient Seen: 17:37 Diagnoses: Intrauterine gestation, 41+ 0 weeks gestational age, delivered by spontaneous vaginal Gestational hypertension, non severe Hospital Course: Ondina was admitted on the evening of 06/26/2022 and underwent oral Cytotec ripening. On the morning of 06/27/2022 Pitocin induction was initiated and she progressed well following spontaneous rupture of membranes. She delivered spontaneously a viable male Apgars of 9/9 with a weight of 7 lb 6.41 oz on the afternoon of 06/27/2022. Approximately 3 hours after her delivery, she had an episode of shortness of breath with transient drop in her oxygen saturation. Evaluation including EKG, chest x-ray, and CT angiogram PE protocol were all negative. Laboratory evaluation included a negative COVID test, stable hemoglobin and hematocrit, negative troponin, mild elevation of CK MB, normal lactate, and a significantly elevated D-dimer which prompted the CT angiogram of the chest. Exam showed only diffuse late expiratory wheezes and the patient has a history of both asthma and allergies. Her symptoms resolved spontaneously with the thought being that her symptoms may have been allergy related from potential environmental exposure or medication interactions. Her blood pressure never dropped and in fact she has occasionally had elevations of her blood pressure with the systolic rising as high as 150 mmHg but typically her blood pressures have been in the 130/80 range. Mother and baby have otherwise done extremely well following delivery and the patient's overnight symptoms have resolved completely. She is ambulating independently, tolerating regular diet, has experienced prompt return of bowel and bladder function, and her pain is well relieved with oral pain medications. She will be discharged at this time to home in an afebrile normotensive condition following counseling regarding precautionary symptoms, limitations of activity, medications, and plans for follow-up which will be in 6 weeks. The patient will also closely observe her blood pressure at home and report any consistent elevations above the 145/95 range. She was also counseled regarding signs and symptoms of severe blood pressure elevation including but not limited to headache, visual changes, and right upper quadrant pain. Medications at discharge will include oxycodone 5 mg dispensed 20 with no refills, and ibuprofen 600 mg p.o. q.6 hours as needed pain. Peripartum Data Delivery Method: Natural Vaginal Laceration Description: Perineal - 2nd Degree and Labial (Bilateral, second-degree) Episiotomy description: None Procedures: Spontaneous vaginal delivery complications: other (Transient shortness of breath, non severe blood pressure elevations) 1: Gender: Male Disposition of : home Discharge Diagnosis (1) Shortness of breath at rest: Status: Acute Problem Details: The etiology of the patient's shortness of breath following delivery is unclear but there was no evidence of pulmonary embolus, or an acute cardiopulmonary event. Over time and given an extended period of observation, the patient's shortness of breath has gradually resolved and given the late expiratory wheezing that the patient had along with her history of allergies, it is conceivable that she had some sort of transient allergic response to an unidentified environmental allergen. Anxiety could also be playing a role but the patient seems to have recovered spontaneously without further intervention. (2) Normal spontaneous vaginal delivery: Status: Acute Status at Discharge Cognitive/behavioral status at discharge: oriented Functional status at discharge: independent ambulation Overall status at discharge: patient is progressing back to baseline Time Spent with Patient Time attestation: Total time spent providing and/or coordinating discharge services: Time spent: Greater than 30 minutes Objective Labs 06/28/22 06:12 Labs: Laboratory Results - last 24 hr 06/27/22 06/27/22 06/27/22 18:15 18:34 18:34 WBC 12.2 H D RBC 3.81 L Hgb 11.7 L Hct 34.0 L MCV 89.2 MCH 30.6 MCHC 34.3 RDW 14.3 Plt Count 182 Neut % (Auto) 87.0 H Lymph % (Auto) 6.4 L [place] % (Auto) 6.0 Eos % (Auto) 0.1 L Baso % (Auto) 0.5 Neut # (Auto) 20323 H Lymph # (Auto) 800 L [place] # (Auto) 700 Eos # (Auto) 0 Baso # (Auto) 100 D-Dimer 34658 H Lactate Total Creatine Kinase CK-MB (CK-2) CK-MB (CK-2) Rel Index Troponin I NT-Pro-B Natriuret Pep Procalcitonin SARS-CoV-2 (PCR) Negative 06/27/22 06/27/22 06/27/22 18:34 18:34 18:34 WBC RBC Hgb Hct MCV MCH MCHC RDW Plt Count Neut % (Auto) Lymph % (Auto) [place] % (Auto) Eos % (Auto) Baso % (Auto) Neut # (Auto) Lymph # (Auto) [place] # (Auto) Eos # (Auto) Baso # (Auto) D-Dimer Lactate 2.6 H Total Creatine Kinase 324 H CK-MB (CK-2) 3.06 H CK-MB (CK-2) Rel Index 0.9 L Troponin I < 0.012 NT-Pro-B Natriuret Pep 115 Procalcitonin 0.05 SARS-CoV-2 (PCR) 06/27/22 06/28/22 21:21 06:12 WBC 10.7 RBC 3.39 L Hgb 10.4 L Hct 30.5 L MCV 90.0 MCH 30.7 MCHC 34.1 RDW 14.3 Plt Count 162 Neut % (Auto) 79.6 H Lymph % (Auto) 12.1 L [place] % (Auto) 7.7 Eos % (Auto) 0.3 L Baso % (Auto) 0.3 Neut # (Auto) 8500 H Lymph # (Auto) 1300 [place] # (Auto) 800 Eos # (Auto) 0 Baso # (Auto) 0 D-Dimer Lactate 1.1 Total Creatine Kinase CK-MB (CK-2) CK-MB (CK-2) Rel Index Troponin I NT-Pro-B Natriuret Pep Procalcitonin SARS-CoV-2 (PCR) Exam Vital Signs (past 8 hours): - 06/28/22 17:04 Temperature 97.1 F L Pulse Rate 105 H Respiratory Rate 16 Blood Pressure 141/87 H Oxygen Delivery Method Room Air Const General: cooperative and comfortable Nutritional Appearance: average body habitus Orientation: alert and oriented x3 HENMT Head: normal to inspection, atraumatic and abrasion Ears: hearing grossly normal bilaterally Face and sinus: face symmetric Eyes General: appearance normal, both eyes and all related structures Conjunctivae: conjunctivae normal Sclera: sclerae normal EOM: EOM intact bilaterally Neck Neck: normal visual inspection Resp Effort & Inspection: normal respiratory effort and able to speak in complete sentences Auscultation: clear to auscultation bilaterally Cardio Rate: regular rate Rhythm: regular rhythm Heart Sounds: S1 normal, S2 normal and no murmurs GI Inspection: normal to inspection Palpation: soft, no hepatosplenomegaly and mass (Firm minimally tender fundus, U-3) External Female Exam: other (No significant bleeding noted, perineum intact) Extrem General: no calf tenderness Psych Appearance: grossly normal Mental Status: mental status grossly normal Speech and Movement: speech and movement normal Mood: congruent mood Affect: normal affect Attitude: cooperative Thought Process: normal Thought Content: normal Judgment: judgment good Discharge Plan Discharge Plan Patient Disposition: Home Provider Discharge Comment: Please review the written instructions you received when you were discharged from the hospital. Your follow-up appointment will be scheduled for 6 weeks following your delivery and I look forward to seeing you then. If however in the meanwhile you have any problems, concerns, or questions, please contact me either through the office phone at [phone], or via the patient portal. Discharge orders & Medications Prescriptions: New ibuprofen 600 mg Tablet 600 mg PO Q6HR PRN (Reason: Pain, Mild (1-3)) Qty: 30 2RF oxycodone 5 mg Tablet 5 mg PO Q4HR PRN (Reason: Pain, Moderate (4-6)) Qty: 20 0RF Continued double electric breast pump 1 ea topical .prn Qty: 1 0RF Rx Instructions: With supplies prenat.vits,román,eeo-jiop-ufbsz Tablet 1 tab PO DAILY Medication counseling provided by Pharmacist: No Follow up/Referrals: Provider,Charli GOLDSTEIN [Primary Care Provider] - Bubba Umana MD [Physician] - (Appointment with on at 3 PM for check.) Discharge Health Status Multidrug resistant organism: No MDRO Diet/Activity/Treatments Diet: Diet as Tolerated Activity: As tolerated Other treatments: [id number] Tylenol may be used for additional pain relief. Tksi-isa-[id number] stool softeners and or MiraLax may be used as needed for constipation. Skin/Wound/Dressing Care Report to your healthcare provider any signs of infection, such as:: chills, fever, increased pain, unusual drainage and unusual redness Dressing: N/A Visit Report/Discharge Packet Instructions: DI for Labor and Delivery, Vaginal , DI for and Nipple Soreness, DI for Prescription Opioid Use Stand Alone Forms: Discharge: Care, Patient Portal/API, Stroke Signs & Symptoms Discharge Data Primary Care Provider: ProviderCharli
[2022-06-28] MEDS: ALBUTEROL 2.5 MG/3 ML NEB (ADULT) INH (18:20)
== END 2022-06-28 19:19 | disposition home or self-care (01) | DRG 807 ==
PROVIDERS: Internal Medicine; Admitting Provider Obstetrics & Gynecology; Referring Provider Obstetrics & Gynecology; Visit Provider Obstetrics & Gynecology
DX: O48.0 Post-term pregnancy (principal); Z37.0 Single live birth; O13.4 Gestational [pregnancy-induced] hypertension without significant proteinuria, complicating childbirth; Z3A.40 40 weeks gestation of pregnancy; O70.1 Second degree perineal laceration during delivery; O99.893 Other specified diseases and conditions complicating puerperium; R06.02 Shortness of breath; R06.2 Wheezing
CPT/HCPCS: 36415; 59050; 59200; 59400; 59409; 71046; 71275; 82550; 82553; 83605; 83880; 84145; 84484; 85025; 85379; 86850; 86900; 86901; 87635; 93005; 94640; C9803; G0379; J1100; J1200; J2590; J3010; J7613; Q9967